=== PATIENT | female | born 1955 | race Caucasian/White ===

== ENCOUNTER 2022-11-04 21:24 | Emergency (ER) | payer MEDICARE, SELFPAY ==
[2022-11-04 21:35] VITALS: BP 159/72; PULSE 105; RESP 15; TEMP 36.4; O2SAT 99
--- NOTE | 2022-11-04 21:46 | DI.CT.S_ITS ---
PROCEDURE: CT CERVICAL SPINE WO CON INDICATIONS: Fall and hit head TECHNIQUE: Noncontrast 3 mm thick sections acquired from the skull base to the T4 level. Sagittal and coronal reformats were then constructed. For radiation dose reduction, the following was used: automated exposure control, adjustment of mA and/or kV according to patient size. COMPARISON: None. FINDINGS: Image quality: Excellent. Bones: No fractures or subluxation. There is straightening of the cervical lordosis. Minimal anterolisthesis demonstrated at C4-C5. 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 Visualized superior ribs are intact. Soft tissues: Prevertebral soft tissues are normal in thickness. No paravertebral hematomas. No apical pneumothoraces. IMPRESSION: 1. No acute fracture or subluxation. Dictated by: Keaton Dodson M.D. on 11/04/2022 at 22:10 Approved by: Keaton Dodson M.D. on 11/04/2022 at 22:13
--- NOTE | 2022-11-04 21:46 | DI.CT.S_ITS ---
PROCEDURE: CT HEAD/BRAIN WO CON INDICATIONS: Fall and hit head TECHNIQUE: Noncontrast 4.5 mm thick angled axial sections acquired from the foramen magnum to the vertex, with coronal and sagittal reformats. For radiation dose reduction, the following was used: automated exposure control, adjustment of mA and/or kV according to patient size. COMPARISON: None. FINDINGS: Image quality: Excellent. CSF spaces: Basal cisterns are patent. No extra-axial fluid collections. Ventricles are normal in size and shape. Brain: No intracranial hemorrhage, mass, or mass effect. Oliver-white matter interface appears preserved. Skull and face: There is left posterior parietal scalp soft tissue swelling with a small scalp hematoma. Calvarium and visualized facial bones are intact, without suspicious lesions. Sinuses: Visualized sinuses and mastoids are clear. IMPRESSION: 1. No acute intracranial abnormality. 2. Left posterior parietal soft tissue scalp swelling and subcutaneous hematoma without evidence of subjacent fracture. Dictated by: Keaton Dodson M.D. on 11/04/2022 at 22:09 Approved by: Keaton Dodson M.D. on 11/04/2022 at 22:10
--- NOTE | 2022-11-04 22:29 | ED_ITS ---
HPI - Head Injury General Chief complaint: Head Injury Stated complaint: fall, head injury Time Seen by Provider: 11/04/22 22:24 Source: patient Mode of arrival: Ambulatory Limitations: no limitations History of Present Illness HPI Narrative: Patient is a 67-year-old female who arrived by private vehicle for injuries that she sustained when she states that she was walking down a driveway and slipped/tripped and fell. She did hit her head. There was no loss of consciousness. She did sustain a abrasion to her left elbow. She had neck discomfort and was placed in a cervical collar in triage. She reports no extremity injuries. No hip pain. She did sustain a bruise to the back of her head. Related Data Allergies Allergy/AdvReac Type Severity Reaction Status Date / Time No Known Drug Allergies Allergy Verified 11/04/22 21:40 Review of Systems Constitutional Constitutional: Denies fever(s) and Denies frequent falls ENT Ears, Nose, Mouth, and Throat: Reports system reviewed and no additional complaints, except as documented Musculoskeletal Musculoskeletal: Reports system reviewed and no additional complaints, except as documented Integumentary/Breasts Skin/Breast: Reports system reviewed and no additional complaints, except as documented Neurologic Neurologic: Denies frequent falls Hematologic/Lymphatic On Anticoagulants: No Patient History Social History Smoking Status: Unknown if ever smoked Smoking Status: Unknown if ever smoked alcohol intake frequency: 0-2 drinks per day Exam Initial Vital Signs Initial Vital Signs: Vital Signs Temperature 97.5 F L 11/04/22 21:35 Pulse Rate 105 H 11/04/22 21:35 Respiratory Rate 15 11/04/22 21:35 Blood Pressure 159/72 H 11/04/22 21:35 Pulse Oximetry 99 11/04/22 21:35 Oxygen Delivery Method 11/04/22 21:35 Const General: cooperative and comfortable HENMN Head: abrasion, contusion and hematoma Back/Spine/Pelvis Cervical Spine: No cervical spinal tenderness Skin Other: Superficial abrasion in the left elbow, abrasion to left parietal region of scalp. Neuro General: patient alert, patient awake, patient oriented x3 and moves all extremities Extrem General: normal to inspection and capillary refill normal Scores GCS Jean Claude coma scale eye opening: Spontaneous Jean Claude coma scale verbal response: Orientated Jean Claude coma scale motor response: Obey commands Jean Claude coma scale total score: 15 Course Orders Ordered: ED Orders 11/04/22 21:46 CT cervical spine wo con Stat CT head/brain wo con Stat Vital Signs Vital signs: Vital Signs - 8 hr 11/04/22 21:35 Temperature 97.5 F L Pulse Rate 105 H Respiratory Rate 15 Blood Pressure 159/72 H Pulse Oximetry 99 Oxygen Delivery Method Room Air MDM - Head Injury Differential Diagnosis Differential diagnosis: Likely concussion without loss of consciousness, epidural hematoma, closed head injury, subarachnoid hematoma, postconcussion syndrome and subdural hematoma Condition is:: Resolving Imaging Data CT - cervical spine: Radiologist's Impression: [address] [address] [address] Scan Report Signed Patient: Faye Brooks MR#: [id number] : 1955 Acct:[id number] Age/Sex: 67 / F Date of Service: 11/04/22 Loc: ED Accession Number: [id number] ?? Procedure: CT cervical spine wo con Ordering Provider: Fernando Stapleton D.O. PROCEDURE:? CT CERVICAL SPINE WO CON ? INDICATIONS:? Fall and hit head ? TECHNIQUE:? Noncontrast 3 mm thick sections acquired from the skull base to the T4 level.? Sagittal and coronal reformats were then constructed.? For radiation dose reduction, the following was used:? automated exposure control, adjustment of mA and/or kV according to patient size.? ? COMPARISON:? None. ? FINDINGS:? Image quality:? Excellent.? ? Bones:? No fractures or subluxation.? There is straightening of the cervical lordosis.? Minimal anterolisthesis demonstrated at C4-C5.? 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 Visualized superior ribs are intact.? ? Soft tissues:? Prevertebral soft tissues are normal in thickness.? No paravertebral hematomas.? No apical pneumothoraces.? ? ? IMPRESSION:? ? 1. No acute fracture or subluxation. ? ? Dictated by: Keaton Dodson M.D. on 11/04/2022 at 22:10 ? ? Approved by: Keaton Dodson M.D. on 11/04/2022 at 22:13?? CT scan - head: Radiologist's Impression: [address] [address] [address] Scan Report Signed Patient: Faye Brooks MR#: [id number] : 1955 Acct:[id number] Age/Sex: 67 / F Date of Service: 11/04/22 Loc: ED Accession Number: [id number] ?? Procedure: CT head/brain wo con Ordering Provider: Fernando Stapleton D.O. PROCEDURE:? CT HEAD/BRAIN WO CON ? INDICATIONS:? Fall and hit head ? TECHNIQUE:? Noncontrast 4.5 mm thick angled axial sections acquired from the foramen magnum to the vertex, with coronal and sagittal reformats.? For radiation dose reduction, the following was used:? automated exposure control, adjustment of mA and/or kV according to patient size.? ? COMPARISON:? None. ? FINDINGS:? Image quality:? Excellent.? ? CSF spaces:? Basal cisterns are patent.? No extra-axial fluid collections.? Ventricles are normal in size and shape.? ? Brain:? No intracranial hemorrhage, mass, or mass effect.? Oliver-white matter interface appears preserved.? ? Skull and face:? There is left posterior parietal scalp soft tissue swelling with a small scalp hematoma.? Calvarium and visualized facial bones are intact, without suspicious lesions.? ? Sinuses:? Visualized sinuses and mastoids are clear.? ? IMPRESSION:? ? 1. No acute intracranial abnormality. ? 2. Left posterior parietal soft tissue scalp swelling and subcutaneous hematoma without evidence of subjacent fracture.? ? ? Dictated by: Keaton Dodson M.D. on 11/04/2022 at 22:09 ? ? Approved by: Keaton Dodson M.D. on 11/04/2022 at 22:10?? [facility] Narrative Medical decision making narrative: Patient is alert oriented x3. Cervical collar was removed when the C-spine CT showed no new fractures. She does have a hematoma in the left posterior portion of the scalp however there are no skin changes over the area. Nothing requiring any specific intervention here in the ER. She reports no other injuries from the event. She does have a small contusion to her left elbow but has full range of motion. Will hold on further workup for now. Will discharge patient home. She was given return precautions and follow-up instructions. She expressed understanding and agreement. Discharge Plan Departure Patient Disposition: Home Clinical Impression: Contusion of scalp, Fall, Abrasion of elbow, left Instructions: Contusion Activity Restrictions/Additional Instructions: You can eat like normal sleep like normal. You could also shower like normal. You can take Tylenol for any headaches. Contact your primary doctor for follow- up. Return to the emergency department for any new or worsening symptoms. Stand Alone Forms: Patient Portal/API
== END 2022-11-04 22:40 | disposition home or self-care (01) ==
PROVIDERS: Emergency Provider Emergency Medicine
DX: S00.03XA Contusion of scalp, initial encounter (principal); S50.312A Abrasion of left elbow, initial encounter; W01.0XXA Fall on same level from slipping, tripping and stumbling without subsequent striking against object, initial encounter
CPT/HCPCS: 70450; 72125; 99284